=== PATIENT | female | born 1995 | race Caucasian/White ===

== ENCOUNTER 2017-04-11 14:24 | Emergency (ER) | payer MEDICAID ==
[2017-04-11] MEDS: ACETAMINOPHEN 325 MG TAB PO (16:27)
[2017-04-11] MEDS: SOD CHLORIDE 0.9% 500 ML IV (16:28)
[2017-04-11] MEDS: METOCLOPRAMIDE 10 MG INJ IV (16:28)
[2017-04-11 16:31] LABS: ADD MAN DIFF? NO
[2017-04-11 16:34] LABS: BASOPHILS % 0.5 % (0.0-2.0); EOSINOPHILS # 0.1 10^3/ul (0.0-0.5); HEMATOCRIT 38.5 % (37.0-47.0); HEMOGLOBIN 13.3 g/dl (12.0-16.0); LYMPHOCYTES # 1.6 10^3/ul (0.8-2.9); LYMPHOCYTES % 17.9 % (15.0-51.0); MEAN CORPUSCULAR HEMOGLOBIN 30.6 pg (29.0-33.0); MEAN CORPUSCULAR HGB CONC 34.5 g/dl (32.0-37.0); MEAN CORPUSCULAR VOLUME 88.7 fl (82.0-101.0); MEAN PLATELET VOLUME 11.3 fl (7.4-10.4); MONOCYTE # 0.5 10^3/ul (0.3-0.9); MONOCYTES % 5.4 % (0.0-11.0); NEUTROPHIL # 6.5 10^3/ul (1.6-7.5); PLATELET COUNT 267 10^3/UL (140-415); RED BLOOD COUNT 4.34 10^6/ul (4.20-5.40); RED CELL DISTRIBUTION WIDTH 12.8 % (11.5-14.5)
[2017-04-11 16:34] LABS: WHITE BLOOD COUNT 8.7 10^3/ul (4.8-10.8)
[2017-04-11 16:52] LABS: ADD UMIC NO; UR ASCORBIC ACID 40 mg/dL (NEGATIVE); UR BACTERIA FEW /HPF (NONE SEEN); UR BILIRUBIN (Dip) NEGATIVE (NEGATIVE); UR BLOOD (Dip) NEGATIVE (NEGATIVE); UR CLARITY SLIGHTLY CLOUDY (CLEAR); UR COLOR YELLOW (YELLOW); UR GLUCOSE (Dip) NEGATIVE (NEGATIVE); UR KETONES (Dip) 1+ mg/dL (NEGATIVE); UR LEUKOCYTE ESTERASE (Dip) NEGATIVE Leu/ul (NEGATIVE); UR MUCUS FEW /HPF (NONE SEEN); UR NITRITE (Dip) NEGATIVE (NEGATIVE); UR RBC 0 /HPF (0-5); UR SPECIFIC GRAVITY (Dip) 1.026 (1.003-1.030); UR SQUAMOUS EPITHELIAL CELL FEW /HPF (FEW); UR TOTAL PROTEIN (Dip) NEGATIVE (NEGATIVE); UR UROBILINOGEN (Dip) NEGATIVE (NEGATIVE); UR WBC 0 /HPF (0-5)
== END 2017-04-11 19:48 | disposition home or self-care (01) ==
LOC: FTE 14:24
DX: O26.891 Other specified pregnancy related conditions, first trimester (principal); R10.2 Pelvic and perineal pain; Z3A.09 9 weeks gestation of pregnancy
CPT/HCPCS: 36415; 76801; 81001; 81003; 84702; 85025; 86900; 86901; 96374; 99285-25

== ENCOUNTER 2017-09-12 07:27 | Outpatient (CLI) | payer MEDICAID | END 2017-09-12 09:08 | disposition home or self-care (01) | LOC: OBT 07:27 → L-D 07:27 → OBT 09:08 | DX: O26.893 Other specified pregnancy related conditions, third trimester (principal); R05 Cough; J34.89 Other specified disorders of nose and nasal sinuses; Z3A.31 31 weeks gestation of pregnancy | CPT/HCPCS: 76818 ==

== ENCOUNTER 2017-09-12 09:14 | Emergency (ER) | payer MEDICAID ==
[2017-09-12] MEDS: ACETAMINOPHEN 500 MG TAB PO (09:34)
== END 2017-09-12 10:22 | disposition home or self-care (01) ==
LOC: FTE 09:14
DX: O99.89 Other specified diseases and conditions complicating pregnancy, childbirth and the puerperium (principal); R51 Headache; Z3A.00 Weeks of gestation of pregnancy not specified
CPT/HCPCS: 99283; Z7502

== ENCOUNTER 2017-11-07 00:30 | Inpatient (IN) | payer MEDICAID ==
[2017-11-07] MEDS ORDERED: LIDOCAINE 1% (MPF) 30 ML INJ INJ (09:00)
[2017-11-07] MEDS ORDERED: CARBOPROST 250 MCG INJ IM (09:00)
[2017-11-07] MEDS ORDERED: METHYLERGONOVINE 0.2 MG INJ IM (09:00)
[2017-11-07] MEDS ORDERED: OXYTOCIN 30 UNITS/LR 500 ML IV (09:00)
[2017-11-07] MEDS ORDERED: MISOPROSTOL 200 MCG TAB PR (09:00)
[2017-11-07] MEDS: LACTATED RINGER'S 1,000 ML IV* ×3 (09:28→20:41)
[2017-11-07 10:00] LABS: ADD MAN DIFF? NO
[2017-11-07 10:25] LABS: BASOPHILS % 0.4 % (0.0-2.0); EOSINOPHILS # 0.2 10^3/ul (0.0-0.5); EOSINOPHILS % 2.1 % (0.0-7.0); HEMATOCRIT 38.8 % (37.0-47.0); HEMOGLOBIN 13.3 g/dl (12.0-16.0); LYMPHOCYTES # 1.8 10^3/ul (0.8-2.9); MEAN CORPUSCULAR HGB CONC 34.3 g/dl (32.0-37.0); MEAN CORPUSCULAR VOLUME 90.4 fl (82.0-101.0); MEAN PLATELET VOLUME 11.6 fl (7.4-10.4); MONOCYTE # 0.7 10^3/ul (0.3-0.9); MONOCYTES % 7.6 % (0.0-11.0); NEUTROPHIL # 6.6 10^3/ul (1.6-7.5); NEUTROPHILS % 70.1 % (39.0-77.0); PLATELET COUNT 200 10^3/UL (140-415); RED BLOOD COUNT 4.29 10^6/ul (4.20-5.40); RED CELL DISTRIBUTION WIDTH 13.8 % (11.5-14.5)
[2017-11-07 10:25] LABS: WHITE BLOOD COUNT 9.5 10^3/ul (4.8-10.8)
[2017-11-07 11:02] LABS: INR 0.86; PROTIME 11.8 Sec (11.9-14.9); PT RATIO 0.9
[2017-11-07 11:03] LABS: PARTIAL THROMBOPLASTIN TIME 24.4 Sec (25.0-35.0)
[2017-11-07 11:19] LABS: HEPATITIS B SURFACE ANTIGEN NEGATIVE (NEGATIVE)
[2017-11-07] MEDS: BUTORPHANOL 2 MG INJ IV (12:53)
[2017-11-07] MEDS: LACTATED RINGER'S 1,000 ML IV (15:49)
[2017-11-07] MEDS ORDERED: FENTAnyl 2MCG/ML-ROPIV 0.2% 100 ML (16:18)
[2017-11-07 16:23] LABS: RAPID PLASMA REAGIN NONREACTIVE (NR)
[2017-11-07] MEDS ORDERED: NALOXONE (0.4 MG/ML) INJ IV (16:30)
[2017-11-07] MEDS ORDERED: DIPHENHYDRAMINE 50 MG INJ IV (16:30)
[2017-11-07] MEDS: ONDANSETRON 4 MG INJ IV (20:46)
[2017-11-08] MEDS: FENTAnyl 2MCG/ML-ROPIV 0.2% 100 ML BAG EPI ×2 (02:32→09:00)
[2017-11-08] MEDS: LACTATED RINGER'S 1,000 ML IV* ×5 (02:58→21:54)
[2017-11-08] MEDS ORDERED: AMPICILLIN 2 GM/NS (PMX) 100 ML (08:57)
[2017-11-08] MEDS: AMPICILLIN 2 GM/NS (PMX) 100 ML IVPB (09:02)
[2017-11-08] MEDS: AMPICILLIN 1 GM/NS (PMX) 50 ML IVPB (12:37)
[2017-11-08] MEDS: OXYTOCIN 30 UNITS/LR 500 ML IV ×3 (14:00→18:30)
[2017-11-08] MEDS: IBUPROFEN 600 MG TAB PO ×3 (16:16→23:39)
[2017-11-08] MEDS: MINERAL OIL LIGHT 10 ML VIAL TOP (17:00)
[2017-11-08] MEDS ORDERED: METHYLERGONOVINE 0.2 MG INJ IM (17:30)
[2017-11-08] MEDS ORDERED: ZOLPIDEM 5 MG TAB PO (17:30)
[2017-11-08] MEDS ORDERED: MISOPROSTOL 200 MCG TAB PR (17:30)
[2017-11-08] MEDS ORDERED: DIBUCAINE 1% 30 GM OINT PR (17:30)
[2017-11-08] MEDS ORDERED: HYDROCODONE/APAP (5/325) TAB PO (17:30)
[2017-11-08] MEDS ORDERED: CARBOPROST 250 MCG INJ IM (17:30)
[2017-11-08] MEDS: CEPHALEXIN 500 MG CAP PO ×2 (18:26→23:38)
[2017-11-08] MEDS: WITCH HAZEL/GLYCERIN PAD PR (18:27)
[2017-11-08] MEDS: LANOLIN 7 GM TUBE TOP (18:27)
[2017-11-08] MEDS: BENZOCAINE 20% 56 ML SPRAY TOP (18:27)
[2017-11-08] MEDS: HYDROCODONE/APAP (5/325) TAB PO (18:42)
[2017-11-08] MEDS: MAGNESIUM HYDROXIDE 30ML CUP PO (20:35)
[2017-11-08] MEDS: SENNA/DOCUSATE NA (8.6MG/50MG) TAB PO (20:35)
[2017-11-09] MEDS: CEPHALEXIN 500 MG CAP PO ×4 (05:47→23:37)
[2017-11-09] MEDS: IBUPROFEN 600 MG TAB PO ×4 (05:47→23:37)
[2017-11-09] MEDS: SENNA/DOCUSATE NA (8.6MG/50MG) TAB PO ×2 (09:00→21:41)
[2017-11-09] MEDS: LACTATED RINGER'S 1,000 ML IV* ×2 (09:19→17:19)
[2017-11-09 09:21] LABS: ADD MAN DIFF? NO
[2017-11-09 09:25] LABS: BASOPHIL # 0.1 10^3/ul (0.0-0.1); BASOPHILS % 0.3 % (0.0-2.0); EOSINOPHILS # 0.2 10^3/ul (0.0-0.5); HEMATOCRIT 30.6 % (37.0-47.0); HEMOGLOBIN 10.3 g/dl (12.0-16.0); LYMPHOCYTES # 1.8 10^3/ul (0.8-2.9); LYMPHOCYTES % 10.3 % (15.0-51.0); MEAN CORPUSCULAR HEMOGLOBIN 31.4 pg (29.0-33.0); MEAN CORPUSCULAR HGB CONC 33.7 g/dl (32.0-37.0); MEAN CORPUSCULAR VOLUME 93.3 fl (82.0-101.0); MONOCYTE # 0.9 10^3/ul (0.3-0.9); MONOCYTES % 5.3 % (0.0-11.0); NEUTROPHIL # 14.3 10^3/ul (1.6-7.5); NEUTROPHILS % 82.3 % (39.0-77.0); PLATELET COUNT 162 10^3/UL (140-415); RED BLOOD COUNT 3.28 10^6/ul (4.20-5.40)
[2017-11-09 09:25] LABS: WHITE BLOOD COUNT 17.4 10^3/ul (4.8-10.8)
[2017-11-09] MEDS: MAGNESIUM HYDROXIDE 30ML CUP PO ×2 (10:28→21:40)
[2017-11-10] MEDS: LACTATED RINGER'S 1,000 ML IV* (01:19)
[2017-11-10] MEDS: CEPHALEXIN 500 MG CAP PO ×2 (05:29→11:59)
[2017-11-10] MEDS: IBUPROFEN 600 MG TAB PO ×2 (05:29→12:00)
[2017-11-10 08:55] LABS: ADD MAN DIFF? NO
[2017-11-10] MEDS: VARICELLA VACCINE LIVE/PF 1,350 UNIT/0.5 ML ML SC* (09:00)
[2017-11-10] MEDS: MAGNESIUM HYDROXIDE 30ML CUP PO (09:00)
[2017-11-10] MEDS: DIPHTH/TET/ACEL PERTUSS (ADULT) 0.5 ML VIAL IM* (09:00)
[2017-11-10] MEDS: SENNA/DOCUSATE NA (8.6MG/50MG) TAB PO (09:00)
[2017-11-10] MEDS: MEASLES,MUMPS,RUBELLA VACCINE INJ SC* (09:00)
[2017-11-10 09:05] LABS: BASOPHILS % 0.3 % (0.0-2.0); EOSINOPHILS # 0.2 10^3/ul (0.0-0.5); EOSINOPHILS % 1.5 % (0.0-7.0); HEMOGLOBIN 10.4 g/dl (12.0-16.0); LYMPHOCYTES % 13.9 % (15.0-51.0); MEAN CORPUSCULAR HEMOGLOBIN 31.3 pg (29.0-33.0); MEAN CORPUSCULAR HGB CONC 32.5 g/dl (32.0-37.0); MEAN CORPUSCULAR VOLUME 96.4 fl (82.0-101.0); MEAN PLATELET VOLUME 11.9 fl (7.4-10.4); MONOCYTE # 0.8 10^3/ul (0.3-0.9); MONOCYTES % 5.7 % (0.0-11.0); NEUTROPHIL # 11.4 10^3/ul (1.6-7.5); NEUTROPHILS % 77.8 % (39.0-77.0); PLATELET COUNT 177 10^3/UL (140-415); RED BLOOD COUNT 3.32 10^6/ul (4.20-5.40); RED CELL DISTRIBUTION WIDTH 14.4 % (11.5-14.5)
[2017-11-10 09:05] LABS: WHITE BLOOD COUNT 14.6 10^3/ul (4.8-10.8)
== END 2017-11-10 13:20 | disposition home or self-care (01) | DRG 775 ==
LOC: OBT 00:30 → PP1 11-08 16:49 → L-D 00:30 → OBT 09:30 → L-D 09:30
PROVIDERS: Obstetrics & Gynecology
PROC: 10E0XZZ Delivery of Products of Conception, External Approach (ICD-10-PCS; principal; 2017-11-07)
PROC: 0KQM0ZZ Repair Perineum Muscle, Open Approach (ICD-10-PCS; 2017-11-07)
PROC: 3E033VJ Introduction of Other Hormone into Peripheral Vein, Percutaneous Approach (ICD-10-PCS; 2017-11-07)
DX: O48.0 Post-term pregnancy (principal); Z3A.40 40 weeks gestation of pregnancy; O70.1 Second degree perineal laceration during delivery; Z37.0 Single live birth
CPT/HCPCS: 62319; 76815; 76818; 85025; 85610; 85730; 86592; 86850; 86900; 86901; 87340

== ENCOUNTER 2018-06-25 08:11 | Emergency (ER) | payer MEDICAID ==
[2018-06-25] MEDS: SOD CHLORIDE 0.9% 1,000 ML IV (08:52)
[2018-06-25] MEDS: ONDANSETRON 4 MG INJ IV (08:52)
[2018-06-25] MEDS: KETOROLAC 30 MG INJ IV (08:53)
[2018-06-25 08:54] LABS: ADD MAN DIFF? NO
[2018-06-25 08:58] LABS: BASOPHIL # 0.1 10^3/ul (0.0-0.1); EOSINOPHILS # 0.3 10^3/ul (0.0-0.5); HEMATOCRIT 43.4 % (37.0-47.0); HEMOGLOBIN 14.8 g/dl (12.0-16.0); LYMPHOCYTES # 1.9 10^3/ul (0.8-2.9); LYMPHOCYTES % 32.1 % (15.0-51.0); MEAN CORPUSCULAR HEMOGLOBIN 29.5 pg (29.0-33.0); MEAN CORPUSCULAR HGB CONC 34.1 g/dl (32.0-37.0); MEAN CORPUSCULAR VOLUME 86.5 fl (82.0-101.0); MEAN PLATELET VOLUME 11.2 fl (7.4-10.4); MONOCYTE # 0.4 10^3/ul (0.3-0.9); MONOCYTES % 6.7 % (0.0-11.0); NEUTROPHIL # 3.3 10^3/ul (1.6-7.5); NEUTROPHILS % 54.9 % (39.0-77.0); PLATELET COUNT 238 10^3/UL (140-415); RED BLOOD COUNT 5.02 10^6/ul (4.20-5.40); RED CELL DISTRIBUTION WIDTH 12.7 % (11.5-14.5)
[2018-06-25 09:16] LABS: ADD UMIC YES; UR ASCORBIC ACID NEGATIVE (NEGATIVE); UR BACTERIA FEW /HPF (NONE SEEN); UR BILIRUBIN (Dip) NEGATIVE (NEGATIVE); UR BLOOD (Dip) NEGATIVE (NEGATIVE); UR CLARITY SLIGHTLY CLOUDY (CLEAR); UR COLOR YELLOW (YELLOW); UR GLUCOSE (Dip) NEGATIVE (NEGATIVE); UR KETONES (Dip) NEGATIVE (NEGATIVE); UR LEUKOCYTE ESTERASE (Dip) TRACE Leu/ul (NEGATIVE); UR NITRITE (Dip) NEGATIVE (NEGATIVE); UR RBC 2 /HPF (0-5); UR SPECIFIC GRAVITY (Dip) 1.019 (1.003-1.030); UR SQUAMOUS EPITHELIAL CELL FEW /HPF (FEW); UR TOTAL PROTEIN (Dip) NEGATIVE (NEGATIVE); UR UROBILINOGEN (Dip) NEGATIVE (NEGATIVE); UR WBC 3 /HPF (0-5)
[2018-06-25 09:18] LABS: ALANINE AMINOTRANSFERASE 29 IU/L (13-69); ALBUMIN 4.5 g/dl (3.3-4.9); ALBUMIN/GLOBULIN RATIO 1.45; ALKALINE PHOSPHATASE 161 IU/L (42-121); ANION GAP 10 (5-13); ASPARTATE AMINO TRANSFERASE 24 IU/L (15-46); BILIRUBIN,INDIRECT 0.7 mg/dl (0-1.1); BILIRUBIN,TOTAL 0.7 mg/dl (0.2-1.3); BLOOD UREA NITROGEN 17 mg/dl (7-20); CALCIUM 9.2 mg/dl (8.4-10.2); CARBON DIOXIDE 25 mmol/L (21-31); CHLORIDE 109 mmol/L (97-110); CREATININE 0.69 mg/dl (0.44-1.00); Estimated GFR > 60 mL/min (>60); GLUCOSE 102 mg/dl (70-220); LIPASE 103 U/L (23-300); POTASSIUM 3.6 mmol/L (3.5-5.1); SODIUM 144 mmol/L (135-144); TOTAL PROTEIN 7.6 g/dl (6.1-8.1)
== END 2018-06-25 10:42 | disposition home or self-care (01) ==
LOC: FTE 08:11
DX: R10.9 Unspecified abdominal pain (principal); R10.2 Pelvic and perineal pain; R11.0 Nausea
CPT/HCPCS: 36415; 74176; 76830; 76856; 80053; 81001; 81025; 83690; 85025; 96361; 96374; 96375; 99285-25